=== PATIENT | male | born 1950 | race Caucasian/White ===

== ENCOUNTER 2023-03-16 12:30 | Day surgery (SDC) | payer MEDICARE, BC ==
[~2023-03-16 12:30] MED LIST: Lactated Ringers 1,000 ML IV SCH; Midazolam 1 MG/ML 2 ML SDV ONE; Propofol 200 MG/20 ML SDV ONE; Sodium Chloride 0.9% 10 ML Syringe FLUSH PRN
[2023-03-16 14:20] VITALS: BP 115/81; PULSE 67
== END 2023-03-16 14:10 | disposition home or self-care (01) ==
LOC: LL.SDS 12:30
PROVIDERS: ATTEND Surgery
DX: Z12.11 Encounter for screening for malignant neoplasm of colon (principal); I48.91 Unspecified atrial fibrillation; J44.9 Chronic obstructive pulmonary disease, unspecified; I11.0 Hypertensive heart disease with heart failure; I50.31 Acute diastolic (congestive) heart failure; D75.1 Secondary polycythemia; G47.33 Obstructive sleep apnea (adult) (pediatric); E78.5 Hyperlipidemia, unspecified; J84.10 Pulmonary fibrosis, unspecified; Z86.010 Personal history of colon polyps; Z79.899 Other long term (current) drug therapy; F17.210 Nicotine dependence, cigarettes, uncomplicated; Z79.01 Long term (current) use of anticoagulants
CPT/HCPCS: 00812; J2250; J2704; J7120